=== PATIENT | male | born 1995 | race Caucasian/White ===

== ENCOUNTER 2022-06-14 21:49 | Emergency (ER) | payer OTHER ==
[~2022-06-14] VITALS: Ht 180.3 cm; Wt 78.2 kg
[2022-06-15] MEDS ORDERED: RALTEGRAVIR 400 MG TAB (ISENTRESS) PO SCH
[2022-06-15] MEDS ORDERED: EXPOSURE KIT-ADULT 7 DAY SUPPLY PO ONE (01:20)
[2022-06-15] MEDS ORDERED: RALT40TA PO (01:56)
[2022-06-15] MEDS ORDERED: EMTR1TAB16 PO (01:56)
[2022-06-15 01:58] VITALS: BP 143/86
[2022-06-15] MEDS ORDERED: RALTEGRAVIR 400 MG TAB (ISENTRESS) PO ONE (02:00)
[2022-06-15] MEDS ORDERED: TRUVADA 200MG/300MG TABLET PO ONE (02:00)
[2022-06-16] MEDS ORDERED: TRUVADA 200MG/300MG TABLET PO SCH
[2022-06-16] MEDS ORDERED: UNRESOLVED CLARIFICATION ENTRY XX SCH (00:01)
== END 2022-06-15 02:33 | disposition home or self-care (01) ==
LOC: M ED 21:49
DX: Z20.828 Contact with and (suspected) exposure to other viral communicable diseases (principal)